=== PATIENT | female | born 2000 | race Hispanic/Latino ===

== ENCOUNTER 2018-10-21 10:37 | Emergency (ER) | payer MEDICAID, OTHER ==
[2018-10-21] MEDS ORDERED: HYDROCORTISONE SOD SUCCINATE 100 MG/2 ML VIAL ONE (11:06)
== END 2018-10-21 11:13 | disposition home or self-care (01) ==
LOC: EDH 10:37
DX: L50.0 Allergic urticaria (principal)
CPT/HCPCS: 96372; 99283; J1720

== ENCOUNTER 2022-07-21 15:22 | Emergency (ER) | payer BC ==
[~2022-07-21] VITALS: Ht 170.2 cm; Wt 104.3 kg
[2022-07-21 16:19] LABS: BASOPHILS % (AUTO) 0.4 % (0.0-5.0); EOSINOPHILS % (AUTO) 3.7 % (0.0-8.0); HEMATOCRIT 32.3 % (36-48); LYMPHOCYTES % (AUTO) 19.6 % (21.0-51.0); MEAN CORPUSCULAR HEMOGLOBIN 27.4 pg (27.0-33.0); MEAN CORPUSCULAR HGB CONC 32.2 g/dL (32.0-36.0); MEAN CORPUSCULAR VOLUME 85.2 fL (79-99); MONOCYTES % (AUTO) 6.4 % (3.0-13.0); NEUTROPHILS % (AUTO) 69.3 % (40.0-77.0); PLATELET COUNT (AUTO) 350 K/uL (130-400); RED BLOOD CELL COUNT(AUTO) 3.79 MIL/uL (4.00-5.50); WHITE BLOOD COUNT (AUTO) 8.5 K/uL (4.8-10.8)
[2022-07-21 16:29] LABS: CREATININE 0.6 mg/dL (0.5-1.5); POTASSIUM 3.7 mmol/L (3.5-5.1)
[2022-07-21 16:34] LABS: TOTAL PROTEIN, SERUM 7.1 g/dL (6.0-8.3)
[2022-07-21 16:56] VITALS: BP 126/74
== END 2022-07-21 17:01 | disposition home or self-care (01) ==
LOC: EDH 15:22
DX: F12.929 Cannabis use, unspecified with intoxication, unspecified (principal); R11.2 Nausea with vomiting, unspecified; F41.9 Anxiety disorder, unspecified
CPT/HCPCS: 36415; 80053; 84703; 85025